=== PATIENT | female | born 1965 | race Caucasian/White ===

== ENCOUNTER → 2016-12-16 | Outpatient (CLI) | payer OTHER | LOC: BMCIMAGING 11:36 | PROVIDERS: ATTEND Internal Medicine | DX: R07.81 Pleurodynia (principal); R10.9 Unspecified abdominal pain ==

== ENCOUNTER → 2016-12-30 | Outpatient (CLI) | payer OTHER | LOC: CIMAGING 08:30 | PROVIDERS: ATTEND Internal Medicine | DX: R07.9 Chest pain, unspecified (principal) | CPT/HCPCS: 76705-PO ==

== ENCOUNTER 2017-10-07 08:19 | Emergency (ER) | payer OTHER ==
[2017-10-07 08:33] VITALS: RESP 18; TEMP 98
[2017-10-07] MEDS ORDERED: IBUPROFEN 600 MG TAB PO ONE (08:36)
[2017-10-07] MEDS ORDERED: ACETAMINOPHEN 500 MG TAB PO ONE (08:36)
--- NOTE | 2017-10-07 09:27 | EDPHY ---
H & P Time Seen by Provider: 10/07/17 08:25 HPI/ROS: This patient slipped on ice and fell today on her right side complaining of right upper anterior rib pain that is sharp in nature and worse with a deep breath or movement. She also has moderate elbow pain. She reports the rib pain is moderate baseline but becomes severe with a deep breath or movement. She has not had any medication prior to arrival. The incident occurred shortly prior to arrival. She arrived by private vehicle. She denies any other injuries from the fall. Her elbow pain worsens with movement as well and she notes no other exacerbating factors. ROS: HEENT: No injuries Musculoskeletal: No midline neck or back pain. She does report mild to moderate elbow pain in addition. Pulmonary: No dyspnea or hemoptysis Cardiovascular: No lightheadedness GI: No abdominal pain Integumentary: No lacerations or abrasions 7 point ROS is otherwise negative. Past Medical/Surgical History: Kxrwhn-wwnt-wa-moderate Moderate obesity Social History: Occasional alcohol. No drug use. No history of addiction Smoking Status: Never smoked Physical Exam: Physical Exam Vital signs are normal with exception of mild hypertension General: No acute distress HEENT: Atraumatic. Eyes: Pupils equal and react to light. Extraocular motions are intact. Neck: Nontender Back: Nontender Lungs: Clear to auscultation bilaterally. No rales rhonchi or wheeze. Cardiac: Regular rate and rhythm with no murmur gallop or rub Skin: No rash or pallor. Extremities: Atraumatic normal except for right elbow Right elbow: Patient has mild tenderness to moderate tenderness at the region of the radial head. She is able to pronate and supinate without much increase in pain but has increased pain with flexion versus resistance. She is holding the elbow partially flexed for comfort. Neuro: Alert and oriented x3 with no sensorimotor deficits in the affected extremity Initial differential diagnosis: Rib fracture versus contusion, elbow fracture versus contusion Constitutional: Initial Vital Signs Temperature (C) 36.6 C 10/07/17 08:29 Heart Rate 87 10/07/17 08:29 Respiratory Rate 18 10/07/17 08:29 Blood Pressure 167/85 H 10/07/17 08:29 O2 Sat (%) 95 10/07/17 08:29 O2 Delivery Mode Room Air Allergies/Adverse Reactions: amlodipine besylate [From [facility]] Allergy (Severe, Verified 08/14/15 18:50) ciprofloxacin [From Cipro] Allergy (Intermediate, Verified 08/14/15 18:50) hives, muscles "loose" and sore ciprofloxacin HCl [From Cipro] Allergy (Intermediate, Verified 08/14/15 18:50) hives, muscles "loose" and sore Penicillins Allergy (Intermediate, Verified 08/14/15 18:50) Hives Sulfa (Sulfonamide Antibiotics) Allergy (Intermediate, Verified 08/14/15 18:50) Hives CHLORAPREP Allergy (Severe, Uncoded 08/14/15 18:50) hives, swelling, goddard, itching Home Medications: Medication Instructions Recorded Budesonide 180 Mcg INH [Pulmicort 180 mcg IH BID 01/20/12 180Mcg Flexhaler (RX)] Carvedilol [Coreg (RX)] 25 mg PO BIDMEAL 01/20/12 Albuterol [Proventil Inhaler (RX)] 1 - 2 puffs IH PRN PRN 01/21/12 Ascorbic Acid [Vitamin C 500 mg 500 mg PO DAILY 01/21/12 (OTC)] Cholecalciferol Vit D3 [Vitamin D 400 units PO DAILY 01/21/12 400 units (OTC)] Multivitamins [Multivitamin (OTC)] 1 each PO DAILY 01/21/12 metFORMIN HCL [Riomet] 1,500 mg PO DAILY@18 01/21/12 GLIPIZIDE 01/29/16 Victoza 3-Sampson 01/29/16 Hydrocodone/APAP 5/325 [[place] 1 - 2 tab PO Q4PRN PRN #20 tab 10/07/17 5/325 (*)] MDM/Departure - MDM Diagnostics: Chest x-ray PA and lateral: Right 3rd rib fracture. No pneumothorax or hemothorax Elbow x-rays: Positive effusion very subtle lucency in the radial head equivocal for fracture. Imaging Results: Imaging Impressions Chest X-Ray 10/07/17 08:47 Impression: Chest negative for acute posttraumatic sequela. Elbow X-Ray 10/07/17 09:41 Impression: Equivocal nondisplaced radial head fracture versus sequela of old injury. Findings discussed with Natanael Yu on 10/07/2017 at 10:24 a.m. Imaging: I viewed and interpreted images myself (I read the chest x-ray myself. I spoke with Dr. Villanueva-radiologist in consult regarding the elbow x-rays. ) Medications Given: Discontinued Medications Acetaminophen (Tylenol) 1,000 mg PO EDNOW ONE Stop: 10/07/17 08:37 Last Admin: 10/07/17 08:41 Dose: 1,000 mg Ibuprofen (Motrin) 600 mg PO EDNOW ONE Stop: 10/07/17 08:37 Last Admin: 10/07/17 08:41 Dose: 600 mg ED Course/Re-evaluation: Sling applied to the right elbow. I counseled the patient regarding her rib fracture elbow injury Discussion: Patient with rib fracture without evidence of hemothorax pneumothorax, solid organ injury or other complicating factors. She also has a right elbow effusion than and I suspect a very subtle radial head fractures the cause of this. I counseled regarding this. She is neurovascular intact in the upper extremity and has no evidence of head injury, back injury or other concerning findings. She will follow up with Dr. cervantes's her orthopedic physician regarding her elbow. Will treat her pain with ibuprofen and Vicodin. - Depart Disposition: Home, Routine, Self-Care Clinical Impression: Effusion, right elbow Rib fracture Qualifiers: Encounter type: initial encounter Rib fracture type: single rib Fracture type: closed Laterality: right Qualified Code(s): S22.31XA - Fracture of one rib, right side, initial encounter for closed fracture Condition: Good Instructions: Rib Fracture (ED) Additional Instructions: Diagnosis: Right 3rd rib fracture 2. Right elbow effusion Yes swelling in the right elbow joint and this is often associated with a subtle fracture that is difficult to appreciate on the initial x-ray. We suspect that he may have a very small radial head fracture causing this. Plan: Ibuprofen or Aleve regularly as needed for pain control. Tylenol or Vicodin in addition if needed. No driving, alcohol or come Vicodin. Sling when your up and about for your elbow. Take a deep breath every 10-15 minutes despite the pain so that you do not get atelectasis in the right lung that could develop into a pneumonia. Typically the pain gradually improved over a course of 7-10 days. However the rib will take 3-4 weeks to completely heal cell limit activity accordingly. Call Dr. Cervantes,-insurance specialist arrange follow-up appointment for sometime within the next 3-7 days for further evaluation of her elbow Return emergency department if he developed unbearable pain despite medications , shortness of breath, coughing blood, fevers or other concerns. Stand Alone Forms: Work Excuse Prescriptions: Hydrocodone/APAP 5/325 [[place] 5/325 (*)] 1 - 2 tab PO Q4PRN PRN #20 tab PRN Reason: Pain Referrals: Ros Ch MD [Primary Care Provider] - As per Instructions Franck Cervantes MD [Medical Doctor] - As per Instructions
[2017-10-07 09:35] VITALS: BP 137/62; PULSE 18; O2SAT 93
== END 2017-10-07 09:33 | disposition home or self-care (01) ==
LOC: CED 08:19
DX: S22.31XA Fracture of one rib, right side, initial encounter for closed fracture (principal); S50.01XA Contusion of right elbow, initial encounter; J45.909 Unspecified asthma, uncomplicated; W00.9XXA Unspecified fall due to ice and snow, initial encounter
CPT/HCPCS: 71020-PO; 73080-PO

== ENCOUNTER → 2018-01-01 | Outpatient (CLI) | payer OTHER | LOC: FCPNEURO 21:00 | PROVIDERS: ATTEND Student in an Organized Health Care Education/Training Program | DX: G47.33 Obstructive sleep apnea (adult) (pediatric) (principal) ==

== ENCOUNTER → 2018-03-17 | Outpatient (CLI) | payer OTHER | LOC: BMCIMAGING 12:45 | PROVIDERS: ATTEND Internal Medicine | DX: R07.89 Other chest pain (principal); Z87.81 Personal history of (healed) traumatic fracture ==

== ENCOUNTER → 2018-04-08 | Outpatient (CLI) | payer OTHER | LOC: FIMAGING 15:11 | PROVIDERS: ATTEND Internal Medicine | DX: R07.89 Other chest pain (principal); R60.9 Edema, unspecified; S20.211A Contusion of right front wall of thorax, initial encounter; M75.51 Bursitis of right shoulder; Z87.81 Personal history of (healed) traumatic fracture ==

== ENCOUNTER → 2018-09-30 | Outpatient (CLI) | payer OTHER | LOC: BRMIMAGING 10:21 | PROVIDERS: ATTEND Internal Medicine Endocrinology, Diabetes & Metabolism | DX: Z13.820 Encounter for screening for osteoporosis (principal); M81.0 Age-related osteoporosis without current pathological fracture; E27.9 Disorder of adrenal gland, unspecified; Z79.52 Long term (current) use of systemic steroids; Z87.81 Personal history of (healed) traumatic fracture; Z91.81 History of falling; Z78.0 Asymptomatic menopausal state ==